=== PATIENT | male | born 1995 | race American Indian/Alaskan Native ===

== ENCOUNTER 2017-08-28 16:28 | Emergency (ER) | payer OTHER ==
[2017-08-28 16:54] VITALS: BP 156/69
[2017-08-28] MEDS ORDERED: MOTRIN PO ONE (20:52)
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
== END 2017-08-28 21:45 | disposition home or self-care (01) ==
LOC: ED 16:28
DX: M54.2 Cervicalgia (principal); M54.5 Low back pain; F17.200 Nicotine dependence, unspecified, uncomplicated
CPT/HCPCS: 99282